=== PATIENT | male | born 1985 | race Caucasian/White ===

== ENCOUNTER 2020-03-21 21:04 | Inpatient (IN) | payer OTHER ==
[2020-03-21] MEDS ORDERED: Fentanyl 100 MCG/2 ML VIAL ONE ×2 (21:17→22:01)
[2020-03-21 21:23] LABS: #Basophils 0.1 thou/uL (0.0-0.2); #Eosinphils 0.7 thou/uL (0.0-0.7); #Lymphocytes 2.2 thou/uL (1.20-3.40); #Monocytes 1.1 thou/uL (0.11-0.59); #Neutrophils 9.9 thou/uL (1.40-6.50); %Basophils 0.7 % (0.0-1.0); %Eosinophils 4.9 % (0.0-10.0); %Lymphocytes 15.7 % (21.0-51.0); %Monocytes 7.9 % (0.0-10.0); %Neutrophils 70.8 % (42.0-75.0); Hemoglobin 15.4 g/dL (14.0-18.0); Mean Corpuscular HGB CONC 32.6 g/dL (32.0-36.0); Mean Corpuscular Hemoglobin 27.5 pg (27.0-31.0); Mean Corpuscular Volume 84.4 fL (78.0-98.0); Mean Platelet Volume 7.4 fL (7.4-10.4); Platelet Count 282 thou/uL (130-400); RBC Distribution Width 12.8 % (11.5-14.5); Red Blood Cell (RBC) Count 5.59 mill/uL (4.70-6.10)
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
[2020-03-21 21:43] LABS: ALT (SGPT) 27 U/L (8-55); AST (SGOT) 28 U/L (5-34); Alkaline Phosphatase 98 U/L (40-110); Anion Gap 12 mmol/L (10-20); BUN (Urea Nitrogen) 11 mg/dL (8.9-20.6); Bilirubin, Total 0.4 mg/dL (0.2-1.2); Calc. Creatinine Clearance 0 mL/min (70-130); Calcium 8.7 mg/dL (7.8-10.44); Carbon Dioxide 21 mmol/L (22-29); Chloride 109 mmol/L (98-107); Globulin 3.2 g/dL (2.4-3.5); Glucose 104 mg/dL (70-105); Potassium 4.3 mmol/L (3.5-5.1); Protein, Total 7.2 g/dL (6.0-8.3); Sodium 138 mmol/L (136-145)
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
[2020-03-21 22:29] LABS: Bacteria/HPF None Seen HPF (None Seen); Bilirubin Negative (Negative); Blood, Urine Trace (Negative); Clarity Clear (Clear); Glucose, Urine (Dipstick) Normal (Negative); Ketone, Urine Negative (Negative); Leukocyte Negative Leu/uL (Negative); Mucous/LPF Rare LPF (<2+); Nitrite Negative (Negative); Protein, Urine (Dipstick) 30 mg/dL (Neg-Trace); Squamous Epithelial None Seen HPF (0-3); Urobilinogen Normal mg/dL (Less than 2)
[2020-03-21 22:36] LABS: Specific Gravity, Urine 1.044 (1.002-1.036)
[2020-03-21 22:38] LABS: Calcium Oxalate Crystals 1+ HPF (None Seen)
[2020-03-21] MEDS ORDERED: Midazolam HCl 5 mg/ml Vial ONE (22:45)
[2020-03-21] MEDS ORDERED: Ketorolac Tromethamine 30 MG/ML VIAL ONE (22:45)
[2020-03-21] MEDS ORDERED: Midazolam HCl 2 mg/2 ml Vial ONE (22:46)
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
[2020-03-22] MEDS ORDERED: Dextrose 5% in Water 1,000 ML IV PRN (00:37)
[2020-03-22] MEDS ORDERED: Promethazine HCl 25 MG/ML VIAL IM PRN ×2 (00:37→14:17)
[2020-03-22] MEDS ORDERED: Cyclobenzaprine 10 MG TAB PO PRN (00:37)
[2020-03-22] MEDS ORDERED: Ondansetron ODT 4 MG TAB PO PRN (00:37)
[2020-03-22] MEDS ORDERED: hydrALAZINE 20 MG/ML VIAL SLOW IVP PRN (00:37)
[2020-03-22] MEDS ORDERED: Dextrose 50% Abboject 50 ML SYRINGE SLOW IVP PRN (00:37)
[2020-03-22] MEDS ORDERED: Ketorolac Tromethamine 30 MG/ML VIAL IVP SCH (00:37)
[2020-03-22] MEDS ORDERED: Ondansetron PF 4 MG/2 ML Vial IVP PRN (00:37)
[2020-03-22] MEDS ORDERED: Morphine 4 MG/ML VIAL SLOW IVP PRN (00:37)
[2020-03-22 00:47] VITALS: BMI 48.7
[2020-03-22] MEDS ORDERED: Acetaminophen 500 MG TAB PO SCH (01:00)
[2020-03-22] MEDS ORDERED: traMADol HCl 50 MG TAB PO SCH (01:00)
[2020-03-22] MEDS: Sodium Chloride 0.9% 1,000 ML IV SCH ×2 (01:16→08:24)
[2020-03-22] MEDS: traMADol HCl 50 MG TAB PO SCH ×4 (05:22→23:02)
[2020-03-22] MEDS: Ibuprofen 600 MG TAB PO SCH ×3 (05:23→23:03)
[2020-03-22] MEDS: Acetaminophen 500 MG TAB PO SCH ×4 (05:23→23:02)
[2020-03-22 06:50] LABS: #Basophils 0.1 thou/uL (0.0-0.2); #Eosinphils 0.7 thou/uL (0.0-0.7); #Lymphocytes 2.4 thou/uL (1.20-3.40); #Monocytes 1.1 thou/uL (0.11-0.59); %Basophils 0.5 % (0.0-1.0); %Lymphocytes 21.3 % (21.0-51.0); %Monocytes 10.1 % (0.0-10.0); %Neutrophils 62.1 % (42.0-75.0); Hemoglobin 14.7 g/dL (14.0-18.0); Mean Corpuscular HGB CONC 33.3 g/dL (32.0-36.0); Mean Corpuscular Hemoglobin 28.2 pg (27.0-31.0); Mean Corpuscular Volume 84.7 fL (78.0-98.0); Mean Platelet Volume 7.7 fL (7.4-10.4); Platelet Count 262 thou/uL (130-400); RBC Distribution Width 12.9 % (11.5-14.5); White Blood Cell (WBC) Count 11.3 thou/uL (4.8-10.8)
[2020-03-22 07:15] LABS: Anion Gap 12 mmol/L (10-20); BUN (Urea Nitrogen) 11 mg/dL (8.9-20.6); Calc. Creatinine Clearance 299 mL/min (70-130); Calcium 8.4 mg/dL (7.8-10.44); Carbon Dioxide 22 mmol/L (22-29); Chloride 109 mmol/L (98-107); Glucose 95 mg/dL (70-105); Potassium 4.1 mmol/L (3.5-5.1); Sodium 139 mmol/L (136-145)
[2020-03-22] MEDS: Famotidine 20 MG TAB PO SCH ×2 (08:24→20:32)
[2020-03-22 08:35] LABS: SARS-CoV-2 PCR by NAA Not Detected (NotDetected)
[2020-03-22] MEDS ORDERED: PHENYLEPHRINE-NS 100 MCG/ML 10 ML SYRINGE ONE (10:27)
[2020-03-22] MEDS ORDERED: Glycopyrrolate 0.2 MG/ML 5 ML SYRINGE ONE (10:27)
[2020-03-22] MEDS ORDERED: PROPOFOL 200 MG/20 ML VIAL ONE (10:27)
[2020-03-22] MEDS ORDERED: Rocuronium Bromide 10 MG/ML (10ML VIAL) ONE (10:27)
[2020-03-22] MEDS ORDERED: Ondansetron PF 4 MG/2 ML Vial ONE (10:27)
[2020-03-22] MEDS ORDERED: Succinylcholine 200 MG/10 ml SYRINGE FS ONE (10:27)
[2020-03-22] MEDS ORDERED: Lidocaine 1% PF 5 ML VIAL ONE (10:27)
[2020-03-22] MEDS ORDERED: Dexamethasone 20 MG/5 ML VIAL ONE (10:27)
[2020-03-22] MEDS ORDERED: CEFAZOLIN 2 GM in Premix Bag 1 BAG IVPB SCH (10:45)
[2020-03-22] MEDS ORDERED: HYDROmorphone 0.5 MG/0.5 ML SYRINGE ONE (10:50)
[2020-03-22] MEDS ORDERED: Midazolam HCl 2 mg/2 ml Vial ONE ×2 (10:50→11:36)
[2020-03-22] MEDS ORDERED: Fentanyl 100 MCG/2 ML VIAL ONE ×2 (10:50→11:36)
[2020-03-22] MEDS ORDERED: Bupivacaine HCl 0.5%/Epinephrine 1:200,000/PF 30 ml Vial ONE (11:25)
--- NOTE | 2020-03-22 13:48 | RAD ---
RIGHT HUMERUS: Two fluoroscopic views are presented from OR. INDICATION: Intraoperative imaging during open reduction internal fixation of humerus. FINDINGS/IMPRESSION: These views demonstrate plate and screws transfixing the mid shaft of the humerus. POS: AGW
[2020-03-22] MEDS ORDERED: Promethazine HCl 25 MG/ML VIAL SLOW IVP PRN (14:17)
[2020-03-22] MEDS ORDERED: Ondansetron HCl/PF 4 MG/2 ML Vial IVP PRN (14:17)
[2020-03-22] MEDS: CEFAZOLIN 2 GM in Premix Bag 1 BAG IVPB SCH (20:32)
[2020-03-23] MEDS: CEFAZOLIN 2 GM in Premix Bag 1 BAG IVPB SCH (04:43)
[2020-03-23] MEDS: Ibuprofen 600 MG TAB PO SCH ×2 (05:21→14:20)
[2020-03-23] MEDS: Acetaminophen 500 MG TAB PO SCH ×3 (05:22→18:33)
[2020-03-23] MEDS: traMADol HCl 50 MG TAB PO SCH ×3 (05:22→18:32)
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
[2020-03-23] MEDS: Famotidine 20 MG TAB PO SCH (08:19)
[2020-03-23] MEDS ORDERED: Senokot S 8.6-50 MG TAB PO SCH (09:00)
[2020-03-23] MEDS ORDERED: Polyethylene Glycol 3350 17 GM Packet PO SCH (09:00)
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
[2020-03-23 20:15] VITALS: BP 135/77; TEMP 98.1
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
== END 2020-03-23 20:05 | disposition home or self-care (01) | DRG 493 ==
LOC: ERS 21:04 → SURG B 03-22 00:25
PROVIDERS: ADMIT Surgery; ATTEND Surgery
PROC: 0PSF04Z Reposition Right Humeral Shaft with Internal Fixation Device, Open Approach (ICD-10-PCS; principal; 2020-03-23)
DX: S42.391A Other fracture of shaft of right humerus, initial encounter for closed fracture (principal); S22.31XA Fracture of one rib, right side, initial encounter for closed fracture; F20.9 Schizophrenia, unspecified; F31.9 Bipolar disorder, unspecified; Z20.822 Contact with and (suspected) exposure to COVID-19; V89.2XXA Person injured in unspecified motor-vehicle accident, traffic, initial encounter; Z90.49 Acquired absence of other specified parts of digestive tract
CPT/HCPCS: 29105; 36415; 70450; 71045; 71260; 72125; 74177; 76000; 80048; 80053; 81003; 81015; 85025; 87635; 96374; 96375; C1713; G0390; J0690; J1100; J1170; J1885; J2250; J2405; J2704; J3010; U0003; U0005